=== PATIENT | female | born 1995 | race Caucasian/White ===

== ENCOUNTER 2018-12-30 07:20 | Emergency (ER) | payer BC ==
[~2018-12-30] VITALS: Ht 165.1 cm; Wt 75.5 kg
[2018-12-30 07:23] VITALS: BP 156/96; TEMP 100
[2018-12-30] MEDS ORDERED: AMOXICILLIN 50500 MG PO (08:04)
[2018-12-30 08:10] VITALS: PULSE 106
== END 2018-12-30 08:12 | disposition home or self-care (01) ==
LOC: COL.ER 07:20
DX: J02.9 Acute pharyngitis, unspecified (principal)
CPT/HCPCS: J1100